=== PATIENT | female | born 1955 | race American Indian/Alaskan Native ===

== ENCOUNTER 2017-03-20 15:23 | Outpatient (CLI) | payer BC ==
--- NOTE | 2017-03-23 08:56 | Mammography Report ---
BILATERAL DIGITAL SCREENING MAMMOGRAM with CAD: 03/20/17 CLINICAL: Routine screening. COMPARISON:None available. However, a prior mammogram was apparently done [facility]. FINDINGS: The breasts are heterogeneously dense, which may obscure small masses. Multiple low density circumscribed nodules of the left breast require comparison with the prior mammogram. No architectural distortion or suspicious calcifications. Right retroareolar biopsy clip. The left breast is negative. IMPRESSION: Abnormalities asymmetry requiring further evaluation. BI-RADS CATEGORY: 0 -- Additional Evaluation Required RECOMMENDATION: Comparison with a previous mammogram. We will attempt to obtain a prior mammogram from [facility]. If we do not obtain a prior mammogram for comparison within 30 days, a revised report will be issued recommending a recall for additional imaging. Please be advised that the patient should not schedule an appointment for return until adequate time (at least 2 weeks) has passed for us to obtain the prior mammogram. ACR BI-RADS MAMMOGRAPHIC CODES: 0 = Needs additional imaging evaluation; 1 = Negative; 2 = Benign; 3 = Probably benign; 4 = Suspicious; 5 = Malignant; 6 = Known biopsy-proven malignancy COMMENT: 1. Dense breast tissue, i.e., adenosis, fibrocystic changes, etc., may obscure an underlying neoplasm. 2. Approximately 10% of cancers are not detected with mammography. 3. A negative mammography report should not delay biopsy if a clinically suspicious mass is present. COMMENT: Patient follow-up letters are generated via our [employer] application.
== END 2017-03-20 15:24 | disposition home or self-care (01) ==
LOC: SPVWC 15:23
DX: Z12.31 Encounter for screening mammogram for malignant neoplasm of breast (principal)
CPT/HCPCS: 77067; G0202

== ENCOUNTER 2020-03-29 11:39 | Outpatient (CLI) | payer BC ==
--- NOTE | 2020-03-29 15:34 | Mammography Report ---
DIGITAL SCREENING MAMMOGRAM WITH CAD, 03/29/2020 INDICATION: Routine screening mammography. TECHNIQUE: Digital bilateral 2D mammography was obtained in the craniocaudal and mediolateral obliq ue projections. This examination was interpreted with the benefit of Computer-Aided Detection analysi s. COMPARISON: 03/20/2017 FINDINGS: Breast Density: There are scattered areas of fibroglandular density. There is no evidence of dominant mass, suspicious calcifications or architectural distortion in eithe r breast. Bilateral nodularity is stable. Right biopsy clip is present. Overall, no interval change. IMPRESSION: Benign findings. Follow up recommendation: Routine yearly BI-RADS Category 2: Benign. A "normal" or negative report should not discourage follow up or biopsy of a clinically significant f inding. A written summary of these findings will be mailed to the patient. The patient will be entered into a mammography reporting system which will generate a reminder letter for the patient's next appointmen t at the appropriate interval. The [employer] recommends yearly mammograms starting at age 40 and continuing as l nba as a woman is in good health. Breast MRI is recommended for women with an approximate 20-25% or greater lifetime risk of breast cancer, including women with a strong family history of breast or ova luigi cancer or who have been treated for Hodgkin's disease. Signer Name: Cara Chris MD Signed: 03/29/2020 3:30 PM Workstation Name: [id number]
== END 2020-03-29 11:40 | disposition home or self-care (01) ==
LOC: SPVWC 11:39
DX: Z12.31 Encounter for screening mammogram for malignant neoplasm of breast (principal)
CPT/HCPCS: 77067